=== PATIENT | female | born 1995 | race Caucasian/White ===

== ENCOUNTER 2017-04-03 06:38 | Emergency (ER) | payer MEDICAID ==
[~2017-04-03] VITALS: Ht 154.9 cm; Wt 75.0 kg
[~2017-04-03 06:38] MED LIST: IBUP100T7
[2017-04-03] MEDS ORDERED: ONDANSETRON HCL 4MG/2ML VIAL IV ONE (09:15)
[2017-04-03] MEDS ORDERED: FOLIC ACID 1 MG, THIAMINE HCL 100 MG, MVI, ADULT NO.1 10 ML in DEXTROSE 5% WATER 1,000 ML IV ONE ×4 (09:15)
[2017-04-03 09:29] LABS: CLARITY URINE CLEAR (CLEAR); COLOR URINE YELLOW (YELLOW); GLUCOSE URINE NEGATIVE (NEGATIVE); KETONES URINE NEGATIVE (NEGATIVE); LEUKOCYTE ESTERASE URINE 1+ (NEGATIVE); NITRITE URINE NEGATIVE (NEGATIVE); OCCULT BLOOD URINE NEGATIVE (NEGATIVE); PH URINE 6.5 (4.5-8.0); PROTEIN URINE NEGATIVE (NEGATIVE); SPECIFIC GRAVITY URINE 1.018 (1.005-1.030); UROBILINOGEN URINE 0.2 E.U./dL (0.2-1.0)
[2017-04-03] MEDS ORDERED: MORPHINE SULFATE 4 MG/ML CPJ (NOT FOR IM USE) IV ONE (09:30)
[2017-04-03 09:34] LABS: BASOPHILS % 0.9 % (0.0-2.0); EOSINOPHILS % 1.5 % (0.0-5.0); HEMATOCRIT. 37.1 % (36.0-48.0); HEMOGLOBIN. 11.9 g/dL (12.0-16.0); LYMPHOCYTES % 34.4 % (20.0-50.0); MEAN CORPUSCULAR HEMOGLOBIN 25.9 pg (28.0-32.0); MEAN CORPUSCULAR VOLUME 80.4 fL (81.0-99.0); MEAN PLATELET VOLUME 7.7 fl (7.4-10.4); MONOCYTES % 5.8 % (2.0-8.0); NEUTROPHILS % 57.4 % (40.0-76.0); PLATELET 277 x1000/uL (130-400); RED BLOOD CELL COUNT 4.61 mill/uL (4.2-5.4); RED CELL DISTRIBUTION WIDTH 22.9 % (11.6-14.6)
[2017-04-03 09:41] LABS: CHLORIDE 106 mEq/L (98-107)
[2017-04-03 09:42] LABS: PROTHROMBIN TIME 10.2 sec
[2017-04-03 09:50] LABS: CARBON DIOXIDE 28 mEq/L (21-32); ETHANOL BLOOD < 10 mg/dL
[2017-04-03 09:53] LABS: *AMPHETAMINES SCREEN URINE NEGATIVE (NEGATIVE); *BARBITURATES SCREEN URINE NEGATIVE (NEGATIVE); *COCAINE SCREEN URINE NEGATIVE (NEGATIVE); METHADONE URINE SCREEN NEGATIVE (NEGATIVE); OPIATES URINE SCREEN NEGATIVE (NEGATIVE); PHENCYCLIDINE URINE SCREEN NEGATIVE (NEGATIVE)
[2017-04-03 09:58] LABS: *BENZODIAZEPINES SCREEN URINE PRESUMTIVE POSITIVE (NEGATIVE); CANNABINOID URINE SCREEN PRESUMTIVE POSITIVE (NEGATIVE)
[2017-04-03 10:05] LABS: HCG SCREEN NEGATIVE
[2017-04-03 10:25] LABS: PLATELET ESTIMATE NORMAL
[2017-04-03 12:51] VITALS: BP 122/74
== END 2017-04-03 13:22 | disposition home or self-care (01) ==
LOC: ER 07:43
DX: K29.20 Alcoholic gastritis without bleeding (principal); N39.0 Urinary tract infection, site not specified; F12.10 Cannabis abuse, uncomplicated; K92.1 Melena; F17.200 Nicotine dependence, unspecified, uncomplicated; R51 Headache
CPT/HCPCS: 36415; 80053; 80305; 81001; 82270; 83690; 84703; 85025; 85610; 96365; 96366; 96375; 99285; G0482; J2270; J2405; J3411; J3490; J7070; Z7610

== ENCOUNTER 2017-04-26 18:00 | Emergency (ER) | payer MEDICAID ==
[~2017-04-26] VITALS: Ht 157.5 cm; Wt 77.0 kg
[2017-04-26 18:03] VITALS: BP 109/53
[2017-04-26] MEDS ORDERED: KETOROLAC 60MG/2ML VIAL IM ONE (18:30)
[2017-04-26] MEDS ORDERED: TETANUS, DIPHTHERIA, PERTUSSIS VAC/PF 0.5ML (>7YR OLD) IM ONE (18:30)
[2017-04-26 18:58] LABS: BASOPHILS % 0.8 % (0.0-2.0); EOSINOPHILS % 1.5 % (0.0-5.0); HEMATOCRIT. 35.3 % (36.0-48.0); HEMOGLOBIN. 11.5 g/dL (12.0-16.0); LYMPHOCYTES % 34.7 % (20.0-50.0); MEAN CORPUSCULAR HEMOGLOBIN 26.6 pg (28.0-32.0); MEAN CORPUSCULAR VOLUME 81.8 fL (81.0-99.0); MEAN PLATELET VOLUME 7.8 fl (7.4-10.4); MONOCYTES % 6.7 % (2.0-8.0); NEUTROPHILS % 56.3 % (40.0-76.0); PLATELET 248 x1000/uL (130-400); RED BLOOD CELL COUNT 4.31 mill/uL (4.2-5.4); RED CELL DISTRIBUTION WIDTH 20.5 % (11.6-14.6)
[2017-04-26 19:03] LABS: CHLORIDE 105 mEq/L (98-107)
[2017-04-26 19:08] LABS: CARBON DIOXIDE 28 mEq/L (21-32)
[2017-04-26 19:09] LABS: HCG SCREEN NEGATIVE
[2017-04-26 19:11] LABS: ETHANOL BLOOD 53 mg/dL
== END 2017-04-26 19:30 | disposition left against medical advice (07) ==
LOC: ER 18:05
DX: R51 Headache (principal); V89.2XXA Person injured in unspecified motor-vehicle accident, traffic, initial encounter; Y93.89 Activity, other specified; Y92.89 Other specified places as the place of occurrence of the external cause; Y99.8 Other external cause status
CPT/HCPCS: 36415; 80053; 84703; 85025; 99284; G0482

== ENCOUNTER 2017-04-28 08:51 | Emergency (ER) | payer MEDICAID ==
[~2017-04-28] VITALS: Ht 154.9 cm; Wt 82.0 kg
[2017-04-28] MEDS ORDERED: HYDROCODONE/ACETAMINOPHEN 5/325MG TABLET PO ONE ×2 (10:30→12:30)
[2017-04-28] MEDS ORDERED: BACITRACIN ZINC OINT UDPKT TOP ONE (12:30)
[2017-04-28 12:43] VITALS: BP 133/85
== END 2017-04-28 13:49 | disposition home or self-care (01) ==
LOC: ER 10:44
DX: S83.92XA Sprain of unspecified site of left knee, initial encounter (principal); S80.12XA Contusion of left lower leg, initial encounter; T14.8 Other injury of unspecified body region; F17.210 Nicotine dependence, cigarettes, uncomplicated; F41.9 Anxiety disorder, unspecified; F32.9 Major depressive disorder, single episode, unspecified; V03.10XA Pedestrian on foot injured in collision with car, pick-up truck or van in traffic accident, initial encounter; Y93.89 Activity, other specified; Y92.488 Other paved roadways as the place of occurrence of the external cause
CPT/HCPCS: 29505; 70450; 71010; 72070; 72100; 73562; 73610; 73630; 99284; Z7610

== ENCOUNTER 2017-06-11 09:21 | Emergency (ER) | payer MEDICAID ==
[~2017-06-11] VITALS: Ht 154.9 cm; Wt 81.0 kg
[2017-06-11] MEDS ORDERED: TRAZ-132 PO (09:24)
[2017-06-11] MEDS ORDERED: ONDANSETRON HCL 4MG/2ML VIAL IV STA (14:00)
[2017-06-11] MEDS ORDERED: SODIUM CHLORIDE 0.9% 1,000 ML IV ONE (14:00)
[2017-06-11] MEDS ORDERED: FAMOTIDINE 20MG/2ML VIAL IV STA (14:00)
[2017-06-11 14:33] LABS: BASOPHILS % 0.3 % (0.0-2.0); HEMATOCRIT. 37.6 % (36.0-48.0); HEMOGLOBIN. 12.3 g/dL (12.0-16.0); MEAN CORPUSCULAR HEMOGLOBIN 27.7 pg (28.0-32.0); MEAN CORPUSCULAR VOLUME 84.6 fL (81.0-99.0); MEAN PLATELET VOLUME 8.4 fl (7.4-10.4); MONOCYTES % 1.8 % (2.0-8.0); NEUTROPHILS % 89.9 % (40.0-76.0); PLATELET 237 x1000/uL (130-400); RED BLOOD CELL COUNT 4.44 mill/uL (4.2-5.4); RED CELL DISTRIBUTION WIDTH 18.7 % (11.6-14.6)
[2017-06-11 14:36] LABS: CHLORIDE 103 mEq/L (98-107)
[2017-06-11 14:44] LABS: CLARITY URINE CLOUDY (CLEAR); COLOR URINE YELLOW (YELLOW); GLUCOSE URINE NEGATIVE (NEGATIVE); KETONES URINE 3+ (NEGATIVE); LEUKOCYTE ESTERASE URINE TRACE (NEGATIVE); NITRITE URINE NEGATIVE (NEGATIVE); OCCULT BLOOD URINE NEGATIVE (NEGATIVE); PROTEIN URINE 1+ (NEGATIVE); SPECIFIC GRAVITY URINE 1.027 (1.005-1.030); UROBILINOGEN URINE 0.2 E.U./dL (0.2-1.0)
[2017-06-11 14:47] LABS: CARBON DIOXIDE 26 mEq/L (21-32)
[2017-06-11 14:56] VITALS: BP 133/89
[2017-06-11 15:09] LABS: *AMPHETAMINES SCREEN URINE NEGATIVE (NEGATIVE); *BARBITURATES SCREEN URINE NEGATIVE (NEGATIVE); *COCAINE SCREEN URINE NEGATIVE (NEGATIVE); METHADONE URINE SCREEN NEGATIVE (NEGATIVE); OPIATES URINE SCREEN NEGATIVE (NEGATIVE); PHENCYCLIDINE URINE SCREEN NEGATIVE (NEGATIVE)
[2017-06-11 15:11] LABS: *BENZODIAZEPINES SCREEN URINE PRESUMTIVE POSITIVE (NEGATIVE); CANNABINOID URINE SCREEN PRESUMTIVE POSITIVE (NEGATIVE)
== END 2017-06-11 18:06 | disposition home or self-care (01) ==
LOC: ER 12:38
DX: N39.0 Urinary tract infection, site not specified (principal); F12.10 Cannabis abuse, uncomplicated; F13.10 Sedative, hypnotic or anxiolytic abuse, uncomplicated
CPT/HCPCS: 36415; 76700; 80053; 80305; 81001; 81025; 83690; 85025; 96361; 96374; 96375; 99285; J2405; J3490; J7030; Z7610

== ENCOUNTER 2017-09-09 23:38 | Emergency (ER) | payer MEDICAID ==
[~2017-09-09] VITALS: Ht 154.9 cm; Wt 77.7 kg
[~2017-09-09 23:38] MED LIST changes: +TRAZ-132 PO
[2017-09-10] MEDS ORDERED: ACETAMINOPHEN 500MG TABLET PO ONE (03:15)
[2017-09-10] MEDS ORDERED: TETANUS, DIPHTHERIA, PERTUSSIS VAC/PF 0.5ML (>7YR OLD) IM ONE (03:15)
[2017-09-10] MEDS ORDERED: IBUPROFEN 400MG TABLET PO ONE (03:15)
[2017-09-10 06:00] VITALS: BP 112/70
== END 2017-09-10 06:20 | disposition home or self-care (01) ==
LOC: ER 23:38
DX: S01.81XA Laceration without foreign body of other part of head, initial encounter (principal); S80.212A Abrasion, left knee, initial encounter; S80.211A Abrasion, right knee, initial encounter; Y04.0XXA Assault by unarmed brawl or fight, initial encounter; Y93.89 Activity, other specified; Y92.89 Other specified places as the place of occurrence of the external cause; F17.210 Nicotine dependence, cigarettes, uncomplicated; I10 Essential (primary) hypertension; Z98.890 Other specified postprocedural states; Z23 Encounter for immunization; Z86.59 Personal history of other mental and behavioral disorders; Z85.89 Personal history of malignant neoplasm of other organs and systems
CPT/HCPCS: 12011; 70450; 70486; 72125; 81025; 90471; 90715; 99284; X7700

== ENCOUNTER 2018-01-12 17:36 | Emergency (ER) | payer MEDICAID ==
[~2018-01-12] VITALS: Ht 160 cm; Wt 56.0 kg
[2018-01-12 17:51] VITALS: BP 142/95
[2018-01-12 18:29] LABS: BASOPHILS % 0.6 % (0.0-2.0); EOSINOPHILS % 0.9 % (0.0-5.0); HEMATOCRIT. 43.1 % (36.0-48.0); HEMOGLOBIN. 14.5 g/dL (12.0-16.0); LYMPHOCYTES % 25.2 % (20.0-50.0); MEAN CORPUSCULAR HEMOGLOBIN 30.4 pg (28.0-32.0); MEAN CORPUSCULAR VOLUME 90.3 fL (81.0-99.0); MEAN PLATELET VOLUME 7.8 fl (7.4-10.4); MONOCYTES % 5.9 % (2.0-8.0); NEUTROPHILS % 67.4 % (40.0-76.0); PLATELET 339 x1000/uL (130-400); RED BLOOD CELL COUNT 4.77 mill/uL (4.2-5.4); RED CELL DISTRIBUTION WIDTH 17.6 % (11.6-14.6)
[2018-01-12 18:33] LABS: CHLORIDE 105 mEq/L (98-107)
[2018-01-12 18:37] LABS: ETHANOL BLOOD < 10 mg/dL
[2018-01-12 18:44] LABS: HCG SCREEN NEGATIVE
== END 2018-01-12 20:15 | disposition left against medical advice (07) ==
LOC: ER 18:30
DX: N93.9 Abnormal uterine and vaginal bleeding, unspecified (principal); R10.30 Lower abdominal pain, unspecified
CPT/HCPCS: 36415; 80053; 83690; 84703; 85025; 99284; G0482

== ENCOUNTER 2018-12-12 17:39 | Emergency (ER) | payer MEDICAID ==
[~2018-12-12] VITALS: Ht 154.9 cm; Wt 65.8 kg
[~2018-12-12 17:39] MED LIST changes: -TRAZ-132 PO; +TRAZ-213 PO
[2018-12-12 17:42] VITALS: BP 132/98
[2018-12-12] MEDS ORDERED: ALPR0.25 PO (17:44)
[2018-12-12] MEDS ORDERED: LIDOCAINE HCL/PF 1% 10 MG/ML 5ML VIAL IJ ONE (21:15)
[2018-12-12] MEDS ORDERED: IBUPROFEN 600MG TABLET PO ONE (22:15)
== END 2018-12-12 23:15 | disposition home or self-care (01) ==
LOC: ER 17:39
DX: S01.511A Laceration without foreign body of lip, initial encounter (principal); S61.011A Laceration without foreign body of right thumb without damage to nail, initial encounter; F41.9 Anxiety disorder, unspecified; F32.9 Major depressive disorder, single episode, unspecified; I10 Essential (primary) hypertension; Y08.89XA Assault by other specified means, initial encounter; Y93.89 Activity, other specified; Y92.89 Other specified places as the place of occurrence of the external cause; Y99.8 Other external cause status
CPT/HCPCS: 12001; 12011; 73130; 81025; 99284; J3490

== ENCOUNTER 2019-12-13 20:06 | Emergency (ER) | payer MEDICAID ==
[~2019-12-13] VITALS: Ht 154.9 cm; Wt 75.0 kg
[~2019-12-13 20:06] MED LIST changes: +ALPR0.25 PO; -TRAZ-213 PO; +TRAZ-252 PO
[2019-12-13] MEDS ORDERED: IBUPROFEN 800MG TABLET PO ONE (21:00)
[2019-12-13] MEDS ORDERED: ACETAMINOPHEN WITH CODEINE 300/30MG TABLET PO ONE (21:00)
[2019-12-13] MEDS ORDERED: HYDROCODONE/ACETAMINOPHEN 5/325MG TABLET PO ONE (22:15)
[2019-12-13 23:23] LABS: CHLORIDE 104 mEq/L (98-107)
[2019-12-13 23:25] LABS: BASOPHILS % 0.6 % (0.0-2.0); EOSINOPHILS % 2.2 % (0.0-5.0); HEMOGLOBIN. 13.3 g/dL (12.0-16.0); LYMPHOCYTES % 30.7 % (20.0-50.0); MEAN CORPUSCULAR HEMOGLOBIN 33.2 pg (28.0-32.0); MEAN CORPUSCULAR VOLUME 97.6 fL (81.0-99.0); MEAN PLATELET VOLUME 8.3 fl (7.4-10.4); MONOCYTES % 4.8 % (2.0-8.0); NEUTROPHILS % 61.7 % (40.0-76.0); PLATELET 251 x1000/uL (130-400); RED CELL DISTRIBUTION WIDTH 13.9 % (11.6-14.6)
[2019-12-14 01:23] VITALS: BP 145/87
== END 2019-12-14 01:25 | disposition home or self-care (01) ==
LOC: ER 20:06
DX: L03.116 Cellulitis of left lower limb (principal); Z87.828 Personal history of other (healed) physical injury and trauma
CPT/HCPCS: 36415; 73700; 80053; 81025; 83605; 85025; 87040; 93970; 99285; Z7610

== ENCOUNTER 2020-05-10 06:15 | Emergency (ER) | payer MEDICAID ==
[~2020-05-10] VITALS: Ht 160 cm; Wt 66.0 kg
[2020-05-10] MEDS ORDERED: ONDANSETRON HCL 4MG/2ML INJ IV STA (06:34)
[2020-05-10] MEDS ORDERED: SODIUM CHLORIDE 0.9% 1,000 ML IV ONE (06:34)
[2020-05-10 06:53] LABS: BASOPHILS % 0.4 % (0.0-2.0); EOSINOPHILS % 0.1 % (0.0-5.0); HEMATOCRIT. 43.5 % (36.0-48.0); HEMOGLOBIN. 14.4 g/dL (12.0-16.0); LYMPHOCYTES % 9.1 % (20.0-50.0); MEAN CORPUSCULAR HEMOGLOBIN 32.8 pg (28.0-32.0); MEAN CORPUSCULAR VOLUME 99.2 fL (81.0-99.0); MEAN PLATELET VOLUME 8.2 fl (7.4-10.4); MONOCYTES % 1.9 % (2.0-8.0); NEUTROPHILS % 88.5 % (40.0-76.0); PLATELET 205 x1000/uL (130-400); RED BLOOD CELL COUNT 4.38 mill/uL (4.2-5.4); RED CELL DISTRIBUTION WIDTH 13.9 % (11.6-14.6)
[2020-05-10 06:59] LABS: CHLORIDE 102 mEq/L (98-107)
[2020-05-10 07:03] LABS: ETHANOL BLOOD < 10 mg/dL
[2020-05-10 07:17] LABS: HCG SCREEN NEGATIVE
[2020-05-10 07:49] VITALS: BP 143/81
== END 2020-05-10 09:17 | disposition home or self-care (01) ==
LOC: ER 06:15
DX: T42.4X1A Poisoning by benzodiazepines, accidental (unintentional), initial encounter (principal); F17.290 Nicotine dependence, other tobacco product, uncomplicated; F15.10 Other stimulant abuse, uncomplicated; F14.10 Cocaine abuse, uncomplicated; F12.10 Cannabis abuse, uncomplicated; F11.10 Opioid abuse, uncomplicated; F16.10 Hallucinogen abuse, uncomplicated; F19.10 Other psychoactive substance abuse, uncomplicated; I10 Essential (primary) hypertension; Z79.899 Other long term (current) drug therapy; Y92.89 Other specified places as the place of occurrence of the external cause
CPT/HCPCS: 36415; 80048; 80320; 84703; 85025; 93005; 96360; 99284; 99406; J7030; 96361; G0480